=== PATIENT | male | born 2000 | race Caucasian/White ===

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

== ENCOUNTER → 2020-12-23 | Outpatient (CLI) | payer BC ==
--- NOTE | 2020-12-23 19:01 | Diagnostic Imaging Report ---
PROCEDURE: US Scrotum. TECHNIQUE: Multiple real-time grayscale images were obtained over the scrotum in various projections, bilaterally. INDICATION: Left testicular pain. FINDINGS: The right testis measures 4.7 x 2.5 x 2.8 cm and left testicle measures 4.2 x 2.9 x 2.2 cm. 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 There is no discrete testicular mass. There is normal blood flow to both testicles. There are small bilateral epididymal cysts. There is a small right hydrocele. There is a questionable left varicocele. IMPRESSION: 1. No evidence of torsion or discrete testicular mass although there does appear to be mild bilateral testicular microlithiasis. 2. Tiny bilateral epididymal head cysts. 3. Small right hydrocele. 4. Questionable left varicocele. Dictated by: Dictated on workstation # [id number]
== END ==
LOC: RAD 18:03
PROVIDERS: ATTEND Nurse Practitioner Family
DX: N50.3 Cyst of epididymis (principal); N43.3 Hydrocele, unspecified
CPT/HCPCS: 76870

== ENCOUNTER 2023-06-16 19:21 | Emergency (ER) | payer SELFPAY ==
[~2023-06-16] VITALS: Ht 175 cm; Wt 84.0 kg
[2023-06-16] MEDS ORDERED: ONDANSETRON 4 MG ORAL DISSOLVE TABLET PO ONE (19:45)
[2023-06-16] MEDS ORDERED: IBUPROFEN 600 MG TABLET PO ONE (19:45)
--- NOTE | 2023-06-16 19:46 | ED General ---
General Chief Complaint: Cough/Cold/Flu Symptoms Stated Complaint: FATIGUE/VOMITING/DIARRHEA Nursing Triage Note: vomitting/diarrhea/fever since 199906/15/23. seen at [facility] today recieved ivf/zofran. reports last dose apap/motrin last night. Source of Information: Patient, Family Exam Limitations: No Limitations (ROSANNA ANDREWS) History of Present Illness Date Seen by Provider: Jun 16, 2023 Time Seen by Provider: 19:42 Initial Comments Patient is a 22-year-old male who presents ED mother for flulike symptoms. Symptoms started yesterday evening with vomiting and diarrhea. Reports several bouts of vomiting and and diarrhea which did eventually improve. Was seen at [facility] today received IV fluids. Has been drinking water and Gatorade today. Continue having bodyaches chills weakness with a subjective fever. States he had an elevated heart rate at [facility]. Patient denies getting swabbed for COVID or flu. Took Motrin last night. Currently taking Zofran. Denies any cough, sore throat, ear pain, abdominal pain, headache or dizziness. Potential exposure to COVID. No known medical problems. Reports a mild burning with urination without decreased urine output. Denies any rash, current abdominal pain, flank pain, Chest pain short, shortness of breath, cough. (ROSANNA ANDREWS) Allergies and Home Medications Allergies Coded Allergies: No Known Drug Allergies (Unverified , 04/25/13) Patient Home Medication List Home Medication List Reviewed: No (KYRA IBRAHIM DO) No Active Prescriptions or Reported Meds Review of Systems Review of Systems Constitutional: chills, fever, malaise, weakness EENTM: No eye pain, No vision loss, No throat pain, No throat swelling Respiratory: No cough, No hemoptysis, No orthopnea Cardiovascular: No chest pain Gastrointestinal: No abdominal pain; diarrhea, nausea, vomiting Genitourinary: No decreased output, No discharge, No dysuria, No frequency Musculoskeletal: No back pain, No joint pain Skin: No change in color, No change in hair/nails (ROSANNA ANDREWS) All Other Systems Reviewed Negative Unless Noted: Yes (ROSANNA ANDREWS) Past Ovmerre-Okrphv-Kntfhi Hx Patient Social History Tobacco Use?: No Substance use?: Yes Substance type: Marijuana Alcohol Use?: Yes Alcohol Frequency: Once in a while Pt feels they are or have been: No (ROSANNA ANDREWS) Immunizations Up To Date Tetanus Booster (TDap): Less than 5yrs PED Vaccines UTD: Yes (ROSANNA ANDREWS) Seasonal Allergies Seasonal Allergies: No (ROSANNA ANDREWS) Past Medical History Surgery/Hospitalization HX: acl repair, dental extraction Tonsillectomy Reproductive Disorders: No Sexually Transmitted Disease: No (ROSANNA ANDREWS) Family Medical History No Pertinent Family Hx (ROSANNA ANDREWS) Physical Exam Vital Signs Vital Signs - First Documented 06/16/23 19:29 Temp 38.5 Pulse 108 Resp 16 B/P (MAP) 124/63 (83) Pulse Ox 100 O2 Delivery Room Air (MARIELENA IBRAHIMA K DO) Vital Signs Capillary Refill : Less Than 3 Seconds (ROSANNA ANDREWS) Height, Weight, BMI Height: 5'10" Weight: 150lbs. oz. [id number]; 27.00 BMI Method:Stated General Appearance: No Apparent Distress, WD/WN Eyes: Bilateral Eye Normal Inspection, Bilateral Eye PERRL, Bilateral Eye EOMI HEENT: PERRL/EOMI, TMs Normal, Normal ENT Inspection, Pharynx Normal Neck: Full Range of Motion, Normal Inspection, Non Tender, Supple Respiratory: Chest Non Tender, Lungs Clear, Normal Breath Sounds, No Accessory Muscle Use, No Respiratory Distress Cardiovascular: No Edema, No Gallop, No JVD, No Murmur, Tachycardia Gastrointestinal: Normal Bowel Sounds, No Organomegaly, No Pulsatile Mass, Non Tender Back: Normal Inspection, No CVA Tenderness Extremity: Normal Capillary Refill, Normal Inspection, Normal Range of Motion, Non Tender Neurologic/Psychiatric: Alert, Oriented x3, No Motor/Sensory Deficits, Normal 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, 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 Norm as Tested Skin: Normal Color, Warm/Dry (ROSANNA ANDREWS) Progress/Results/Core Measures Suspected Sepsis SIRS Temperature: Pulse: 108 Respiratory Rate: 16 Blood Pressure 124 /63 Mean: 83 (ROSANNA ANDREWS) Results/Orders Lab Results Laboratory Tests Test 06/16/23 19:32 Range/Units Influenza Type A (RT-PCR) Not Detected Not Detecte Influenza Type B (RT-PCR) Not Detected Not Detecte SARS-CoV-2 RNA (RT-PCR) Not Detected Not Detecte (KYRA IBRAHIM DO) Medications Given in ED Current Medications Medications Dose Ordered Sig/Cammie Route Start Time Stop Time Status Last Admin Dose Admin Ibuprofen 600 mg ONCE ONCE PO 06/16/23 19:45 06/16/23 19:46 DC 06/16/23 19:46 600 MG Ondansetron HCl 4 mg ONCE ONCE PO 06/16/23 19:45 06/16/23 19:46 DC 06/16/23 19:45 4 MG (KYRA IBRAHIM DO) Vital Signs/I&O 06/16/23 06/16/23 06/16/23 19:29 19:46 20:43 Temp 38.5 38.5 37.9 Pulse 108 89 Resp 16 16 B/P (MAP) 124/63 (83) 121/71 Pulse Ox 100 97 O2 Delivery Room Air Room Air (KYRA IBRAHIM DO) Vital Signs/I&O Capillary Refill : Less Than 3 Seconds (ROSANNA ANDREWS) Blood Pressure Mean: 83 Departure Communication (PCP) Patient is a 22-year-old male who presents to the ED for flulike symptoms. Symptoms started yesterday with vomiting and diarrhea. He Went to [facility] today received IV fluids today. Patient Was discharged with Zofran. Tolerating p.o. fluids at home but continued having body aches chills weakness and subjective fever. Low-grade temp on arrival. Slightly tachycardic. Denies any chest pain, shortness of breath, cough, sore throat, abdominal pain. Exam otherwise benign. Does report some mild burning but no decreased urine output or concern for STD with urination. He was not able to give a urine sample. States he just urinated before arrival. He has been drinking fluids this evening. Provided Motrin and Zofran. COVID influenza was ordered which were negative. I suspect that this is still most likely viral. There is no evidence of surgical abdomen. Tolerating p.o. fluids. No wheezing or signs of pneumonia. No evidence suggesting strep at this time. Continue attempting a urine sample but patient was not able to give one. States he will follow-up outpatient if burning worsens. If any worsening symptoms such as decreased urine output, unable to eat or drink, worsening symptoms return back to ED. Alternate Tylenol and ibuprofen. Follow-up with PCP in 2 to 3 days for reevaluation. Patient appears well-hydrated. (ROSANNA ANDREWS) Impression Primary Impression: Vomiting and diarrhea Disposition: HOME, SELF-CARE Condition: Stable Departure-Patient Inst. Decision time for Depature: 20:40 (ROSANNA ANDREWS) [facility] [place] (PCP/Family) Primary Care Physician Patient Instructions: Nausea and Vomiting, Adult (DC) Add. Discharge Instructions: Continue with your Zofran for nausea. Stay hydrated. Alternate Tylenol ibuprofen. If any worsening symptoms return back to ED. All discharge instructions reviewed with patient and/or family. Voiced understanding. Scripts No Active Prescriptions or Reported Meds Work/School Note: Work Release Form Date Seen in the Emergency Department: Jun 16, 2023 Return to Work: Jun 19, 2023 ATTENDING PHYSICIAN NOTE: I WAS PHYSICALLY PRESENT ER PHYSICIAN, BUT I WAS NOT INVOLVED IN ANY DECISION MAKING OR ANY CARE OF THIS PATIENT, AND I AM NOT COLLABORATING PHYSICIAN. (KYRA IBRAHIM DO) ROSANNA ANDREWS Jun 16, 2023 19:46 KYRA IBRAHIM DO Jun 16, 2023 21:25
[2023-06-16 20:43] VITALS: BP 121/71
== END 2023-06-16 20:46 | disposition home or self-care (01) ==
LOC: EDUNIT# 19:21 → ER 19:24
DX: R11.10 Vomiting, unspecified (principal); R19.7 Diarrhea, unspecified
CPT/HCPCS: 87636; 99283